=== PATIENT | male | born 1970 | race Caucasian/White ===

== ENCOUNTER 2019-03-13 21:49 | Emergency (ER) | payer SELFPAY ==
[~2019-03-13] VITALS: Ht 170.2 cm; Wt 101.8 kg
[2019-03-13] MEDS ORDERED: FLUO10CA13 PO (21:58)
--- NOTE | 2019-03-13 22:25 | NUR ---
Pt ambulated to room, a&ox3. Pt reports SI without a plan or previous attempt. [place], [place] psych facility. Pt reports bipolar and depression dx, prescribed Prozac 60mg last taken 2-3 days ago. Pt currently staying at [facility], recently relocated to [place]. Pt uses meth 3-4 times a week, etoh daily (6 drinks), and smokes 6 cigs a day. Addendum: 03/13/19 at 2231 by IMAN a&ox4*
[2019-03-13] MEDS ORDERED: LORazepam 1MG TABLET PO ONE (22:30)
[2019-03-13 22:39] LABS: BASOPHILS # (AUTO) 0.01 x10^3/uL (0-0.1); BASOPHILS % (AUTO) 0 % (0-1); EOSINOPHILS # (AUTO) 0.07 x10^3/uL (0-0.4); EOSINOPHILS % (AUTO) 1 % (1-7); LYMPHOCYTES # (AUTO) 1.57 x10^3/uL (1-3.4); LYMPHOCYTES % (AUTO) 23 % (22-44); MD NO; MEAN CORPUSCULAR HEMOGLOBIN 30.1 pg (27.5-34.5); MEAN CORPUSCULAR HGB CONC 33.6 g/dL (33.2-36.2); MEAN CORPUSCULAR VOLUME 89.6 fL (81-97); MEAN PLATELET VOLUME 7.6 fL (7.4-10.4); MONOCYTES # (AUTO) 0.72 x10^3/uL (0.2-0.8); MONOCYTES % (AUTO) 10 % (2-9); NEUTROPHILS # (AUTO) 4.58 x10^3/uL (1.8-6.8); NEUTROPHILS % (AUTO) 66 % (42-75); PLATELET COUNT 240 x10^3/uL (130-400)
[2019-03-13 22:49] LABS: ALBUMIN 3.3 g/dL (3.4-5.0); ANION GAP 6 mmol/L (5-15); CALCIUM 8.6 mg/dL (8.5-10.1); CHLORIDE 107 mmol/L (98-107); CREATININE 1.11 mg/dL (0.7-1.3)
[2019-03-13 22:50] LABS: SALICYLATE LEVEL < 1.7 mg/dL (2.8-20.0)
--- NOTE | 2019-03-13 23:11 | NUR ---
URINE SAMPLE TAKEN TO LAB
[2019-03-13] MEDS ORDERED: LORazepam 1MG TABLET ONE (23:13)
--- NOTE | 2019-03-13 23:16 | NUR ---
PT RESTING ON GURNEY, MEDICATED PER APR, DENIES FURTHER NEEDS, SITTER AT DOORWAY FOR CONTINOUS MONITORING
[2019-03-13 23:32] LABS: AMPHETAMINE SCREEN, URINE Positive (Negative); BARBITURATE SCREEN, URINE Negative (Negative); BENZODIAZEPINE SCREEN, URINE Negative (Negative); CANNABINOID SCREEN, URINE Positive (Negative); COCAINE SCREEN, URINE Negative (Negative); METHADONE SCREEN, URINE Negative (Negative); OPIATE SCREEN, URINE Negative (Negative)
--- NOTE | 2019-03-14 00:24 | NUR ---
PROVIDED PT WITH SANDWICH, CHIPS AND DRINK, SI PRECAUTIONS MAINTAINED, DENIES FURTHER NEEDS AT THSI TIME. SITTER AT DOORWAY FOR CONTINOUS MONITORING
--- NOTE | 2019-03-14 01:25 | NUR ---
PT RESTING WITH EYES CLOSED, EQUAL CHEST RISE/FALL OBSERVED, SITTER AT DOORWAY FOR CONTINOUS MONITORING
--- NOTE | 2019-03-14 01:31 | NUR ---
soc on telephone, updated on pt status, vs, h/x and medications. soc to consult with pt
--- NOTE | 2019-03-14 02:09 | NUR ---
Spoke with SOC medical provider who evaluated patient over Telepsych. Received update from provider that the patient was cleared to be discharged under the recommendation that he be discharged to an outpatient drug rehabilitation facility. Relayed this recommendation to the current ED provider. Awaiting for fax of recommendation for disposition.
--- NOTE | 2019-03-14 02:22 | NUR ---
Pt sleeping in [facility]. Awaiting recommendations for discharge.
[2019-03-14 02:55] VITALS: BP 116/81
--- NOTE | 2019-03-14 03:37 | NUR ---
PROVIDED PT WITH ALL PERSONAL BELONGINGS X 3 BAGS
--- NOTE | 2019-03-14 03:48 | NUR ---
PROVIDED PT WITH D/C PAPERS AND PT REFUSES TO GET DRESSED AND BE D/C'D, PT YELLED "IT'S 330 IN THE MORNING AND I SHOULDN'T HAVE BEEN ADMITTED", RN INFORMED PT THAT HE IS NOT ADMITTED AND IT'S TIME D/C, PT YELLED " I'M NOT LEAVING' AND PT SLAMMED THE DOOR. SECURITY CALLED FOR ASSISTANCE WITH PT D/C. SECURITY CURRENTLY AT PT'S BEDSIDE TO ESCORT PT OUT OF HOSPITAL
== END 2019-03-14 03:54 | disposition home or self-care (01) ==
LOC: ED 23:41
DX: F15.159 Other stimulant abuse with stimulant-induced psychotic disorder, unspecified (principal); F22 Delusional disorders; Z72.9 Problem related to lifestyle, unspecified; F17.200 Nicotine dependence, unspecified, uncomplicated
CPT/HCPCS: 36415; 80048; 80307; 82040; 85025; 99283

== ENCOUNTER 2019-03-24 15:39 | Emergency (ER) | payer OTHER ==
[~2019-03-24] VITALS: Ht 170.2 cm; Wt 101.0 kg
[~2019-03-24 15:39] MED LIST: FLUO10CA13 PO
--- NOTE | 2019-03-24 16:03 | NUR ---
Pt here for suicidal ideation, pt reports that he will go jump off a bridge if we let him go. Pt reports he needs to be in a state psychiatric facility. Pt repors he does not know what is real or fake. Pt reports that he has attempted to take his life before. Pt placed in safe room.
--- NOTE | 2019-03-24 16:06 | NUR ---
monet requestd from charge nurse
--- NOTE | 2019-03-24 16:15 | NUR ---
md to bedside
[2019-03-24 16:56] LABS: BASOPHILS # (AUTO) 0.02 x10^3/uL (0-0.1); BASOPHILS % (AUTO) 0 % (0-1); EOSINOPHILS # (AUTO) 0.07 x10^3/uL (0-0.4); EOSINOPHILS % (AUTO) 1 % (1-7); LYMPHOCYTES # (AUTO) 1.74 x10^3/uL (1-3.4); LYMPHOCYTES % (AUTO) 21 % (22-44); MD NO; MEAN CORPUSCULAR HGB CONC 33.7 g/dL (33.2-36.2); MEAN PLATELET VOLUME 7.8 fL (7.4-10.4); MONOCYTES % (AUTO) 10 % (2-9); NEUTROPHILS # (AUTO) 5.79 x10^3/uL (1.8-6.8); NEUTROPHILS % (AUTO) 69 % (42-75); PLATELET COUNT 276 x10^3/uL (130-400); RED BLOOD COUNT 5.27 x10^6/uL (4.38-5.82); RED CELL DISTRIBUTION WIDTH 13.1 % (9.4-14.8)
[2019-03-24 17:07] LABS: ALANINE AMINOTRANSFERASE 36 U/L (12-78); ALBUMIN 3.1 g/dL (3.4-5.0); ANION GAP 7 mmol/L (5-15); CALCIUM 8.7 mg/dL (8.5-10.1); CHLORIDE 105 mmol/L (98-107); CREATININE 0.89 mg/dL (0.7-1.3)
[2019-03-24 17:08] LABS: SALICYLATE LEVEL < 1.7 mg/dL (2.8-20.0)
[2019-03-24 17:09] LABS: ALKALINE PHOSPHATASE 83 U/L (45-117); BILIRUBIN,TOTAL 0.8 mg/dL (0.2-1.0); TOTAL PROTEIN 7.6 g/dL (6.4-8.2)
--- NOTE | 2019-03-24 17:10 | NUR ---
Patient is resting comfortably in bed. Vital Signs within normal limits. Sitter outside room for continous safety monitoring.
--- NOTE | 2019-03-24 17:10 | NUR ---
bags of belongings placed in ed locker.
--- NOTE | 2019-03-24 17:59 | NUR ---
pt given meal tray.
--- NOTE | 2019-03-24 18:00 | NUR ---
BREAK RN: DIET TRAY ORDERED
[2019-03-24] MEDS ORDERED: OLANZAPINE 5 MG TABLET ONE (18:46)
[2019-03-24] MEDS: OLANZAPINE 5 MG TABLET PO SCH ×2 (18:51→21:20)
--- NOTE | 2019-03-24 18:55 | NUR ---
report to Suzette MARCELO
--- NOTE | 2019-03-24 19:27 | NUR ---
pt resting on gurney drowsy but arouses to verbal response, room secured, stated " i still have suicidal thoughts", pt denies plan or si h/x when this rn asked, pt provided with urine cup for sample and pt stated "i don't need to go at thsi time. ill try in about an hour", sitter at doorway for continous monitoring
--- NOTE | 2019-03-24 19:46 | NUR ---
PROVIDED PT WITH SNACK AND WATER
--- NOTE | 2019-03-24 20:09 | NUR ---
pt resting calmly watching tv, denies needs at this time, sitter at doorway for continous monitoring. urine sample sent
[2019-03-24 20:35] LABS: AMPHETAMINE SCREEN, URINE Positive (Negative); BARBITURATE SCREEN, URINE Negative (Negative); BENZODIAZEPINE SCREEN, URINE Negative (Negative); CANNABINOID SCREEN, URINE Positive (Negative); COCAINE SCREEN, URINE Negative (Negative); METHADONE SCREEN, URINE Negative (Negative); OPIATE SCREEN, URINE Negative (Negative)
--- NOTE | 2019-03-24 21:02 | NUR ---
ghazala held pt was recently given by other rn at [id number]
--- NOTE | 2019-03-24 21:11 | NUR ---
Pts mental health placement packet refferal faxed to [facility], tila, wallace yuan, [facility], [id number], [facility]
--- NOTE | 2019-03-24 21:12 | NUR ---
pt resting on mark patel, provided pt with ice chips per his request, sitter at doorway for continous monitoring
--- NOTE | 2019-03-24 22:03 | NUR ---
pt resting calmly with eyes closed, nad, respirations even and unlabored, sitter at doorway for continous monitoring
--- NOTE | 2019-03-24 22:09 | NUR ---
hospital bed ordered by community administrator
--- NOTE | 2019-03-24 22:39 | NUR ---
provided pt with hospital bed
--- NOTE | 2019-03-24 23:09 | NUR ---
pt resting with eyes closed, nad, equal chest rise/fall observed, sitter at doorway for continous monitoring
--- NOTE | 2019-03-25 00:19 | NUR ---
pt resting with eyes closed, repositioned self in bed, equal chest rise/fall observed, sitter at doorway for continous monitoring
--- NOTE | 2019-03-25 01:08 | NUR ---
Patient is resting comfortably in bed, nadn, equal chest rise/fall observed, sitter outside room for continous safety monitoring.
--- NOTE | 2019-03-25 02:19 | NUR ---
pt resting with eyes closed, nad, equal chest rise/fall observed, sitter at doorway for continous monitoring
--- NOTE | 2019-03-25 03:17 | NUR ---
pt resting calmly, nad, respirations even and unlabored, sitter at doorway for continous monitoring
--- NOTE | 2019-03-25 04:00 | NUR ---
pt resting with eyes closed, nad, equal chest rise/fall observed, sitter at doorway for continous monitoring
--- NOTE | 2019-03-25 05:11 | NUR ---
pt resting with eyes closed, nad, equal chest rise/fall observed, sitter at doorway for continous monitoring
--- NOTE | 2019-03-25 06:27 | NUR ---
pt resting with eyes closed, nadn, equal chest rise/fall observed, sitter at doorway for continous monitoring
--- NOTE | 2019-03-25 06:59 | NUR ---
RECEIVED REPORT FROM ISABEL MARCELO AND ASSUMED CARE. PT SLEEPING IN DIRECT VIEW OF SITTER.
--- NOTE | 2019-03-25 07:08 | NUR ---
REPORT GIVEN TO FOZIA BAUMAN
[2019-03-25] MEDS ORDERED: OLANZAPINE 5 MG TABLET ONE (08:34)
[2019-03-25] MEDS: OLANZAPINE 5 MG TABLET PO SCH ×2 (09:03→21:00)
--- NOTE | 2019-03-25 09:05 | NUR ---
MEDICATED NOTED ON MAR AND PROVIDED BREAKFAST.
--- NOTE | 2019-03-25 10:07 | NUR ---
AFTER EATING BREAKFAST BACK TO SLEEP
--- NOTE | 2019-03-25 12:00 | NUR ---
social service liaison at bedside speaking with pt
--- NOTE | 2019-03-25 13:24 | NUR ---
BREAK RN: PT CALMLY RESTING ON HOSPITAL BED DOZING OFF, NAD WITH EQUAL CHEST RISE/FALL, NO NEEDS AT THIS TIME, PT REMAINS IN SAFE ENVIRONMENT, SITTER IN VIEW.
--- NOTE | 2019-03-25 15:06 | NUR ---
PT SLEEPING. REMAINS IN SITE OF SITTER.
--- NOTE | 2019-03-25 15:40 | NUR ---
REPORT RECEIVED FROM MITUL MARCELO.
--- NOTE | 2019-03-25 16:29 | NUR ---
PT SLEEPING IN HOSPITAL BED. RESPS EVEN AND UNLABORED. SITTER MONITORING FROM HALLWAY FOR SAFETY. ROOM REMAINS SECURE.
--- NOTE | 2019-03-25 17:08 | NUR ---
MEAL TRAY ORDERED AT THIS TIME.
--- NOTE | 2019-03-25 17:47 | NUR ---
MEAL TRAY PROVIDED AT THIS TIME.
--- NOTE | 2019-03-25 18:25 | NUR ---
PT AMB TO BR WITH STEADY GAIT. PT'S AOX4. RESPS EVEN AND UNLABORED.
--- NOTE | 2019-03-25 18:50 | NUR ---
REPORT GIVEN TO MELO MARCELO.
--- NOTE | 2019-03-25 19:47 | NUR ---
Jerald martin in [facility] - 03/25/19 at 1948 by IMAN Pt in bed, watching tv, in no distress.
--- NOTE | 2019-03-25 19:48 | NUR ---
Pt laying on right side, sleeping at this time.
--- NOTE | 2019-03-25 22:28 | NUR ---
Pt resting quietly, has no requests at this time
[2019-03-26] MEDS ORDERED: ACETAMINOPHEN 325 MG TABLET ONE (01:23)
[2019-03-26] MEDS ORDERED: OLANZAPINE 10 MG TABLET ONE (01:26)
--- NOTE | 2019-03-26 02:27 | NUR ---
Pt resting comfortably, sitter in hallway to observe
--- NOTE | 2019-03-26 05:23 | NUR ---
PT RESTING IN BED, PT ROOM IS SI SECURE WITH SITTER AT PT BED SIDE?
--- NOTE | 2019-03-26 06:36 | NUR ---
PT RESTING IN BED, PT ROOM IS SI SECURE WITH SITTER AT PT BED SIDE?
--- NOTE | 2019-03-26 07:00 | NUR ---
REPORT RECIEVED FROM NOC RN, PT RESTING COMFORTABLY ON HOSPITAL BED. MEAL TRAY ORDERED, NAD NOTED
[2019-03-26] MEDS ORDERED: OLANZAPINE 5 MG TABLET ONE ×2 (08:07→20:17)
[2019-03-26] MEDS: OLANZAPINE 5 MG TABLET PO SCH ×2 (08:28→20:18)
--- NOTE | 2019-03-26 08:31 | NUR ---
PT MEDICATED PER MAR, GIVEN MEAL TRAY, PT ATE 100% OF MEAL. VSS, NAD NOTED
--- NOTE | 2019-03-26 09:47 | NUR ---
Nestor from [facility] states they never received Doctors notes on patient in packet so faxed these and conformation received.
--- NOTE | 2019-03-26 10:30 | NUR ---
PT RESTING ON HOSPITAL BED, VISIBLE CHEST RISE AND FALL NOTED, NAD, SI PRECAUTIONS REMAIN IN PLACE
--- NOTE | 2019-03-26 12:30 | NUR ---
PT GIVEN MEAL TRAY. NO NEEDS AT THIS TIME, NAD NOTED
--- NOTE | 2019-03-26 15:00 | NUR ---
PT RESTING ON GURNEY, VISIBLE CHEST RISE AND FALL NOTED.
--- NOTE | 2019-03-26 18:18 | NUR ---
PT GIVEN MEAL TRAY. ATE 100% OF MEAL. PT DENIES ANY NEEDS AT THIS TIME
--- NOTE | 2019-03-26 21:27 | NUR ---
PT RESTING WITH EYES CLOSED. SITTER IN DOORWAY.
--- NOTE | 2019-03-26 22:30 | NUR ---
PT RESTING WITH EYES CLOSED. SITTER IN DOORWAY.
--- NOTE | 2019-03-27 00:30 | NUR ---
PT RESTING WITH EYES CLOSED. SITTER IN DOORWAY.
--- NOTE | 2019-03-27 01:30 | NUR ---
PT RESTING WITH EYES CLOSED. SITTER IN DOORWAY.
--- NOTE | 2019-03-27 02:30 | NUR ---
PT RESTING WITH EYES CLOSED. SITTER IN DOORWAY.
--- NOTE | 2019-03-27 03:30 | NUR ---
PT RESTING WITH EYES CLOSED. SITTER IN DOORWAY.
--- NOTE | 2019-03-27 04:30 | NUR ---
PT RESTING WITH EYES CLOSED. SITTER IN DOORWAY.
--- NOTE | 2019-03-27 07:09 | NUR ---
REPORT RECEIVED FROM FOZIA FUENTES. PT RESTING ON HOSPITAL BED. NADN. ROOM SECURE. SITER AT BEDSIDE.
--- NOTE | 2019-03-27 07:13 | NUR ---
BREAKFAST TRAY ORDERED.
--- NOTE | 2019-03-27 08:03 | NUR ---
PT PROVIDED WITH BREAKFAST TRAY. ADMITS TO SI, DENIES HI THIS MORNING. ROOM SECURE. SITTER AT BEDSIDE. DENIES FURTHER NEEDS.
[2019-03-27 08:07] VITALS: BP 116/76
--- NOTE | 2019-03-27 09:05 | NUR ---
PT RESTING ON HOSPITAL BED. NADN. SITTER AT BEDSIDE. ROOM SECURE. RESPIRATIONS EVEN AND UNLABORED.
--- NOTE | 2019-03-27 09:50 | NUR ---
REPORT GIVEN TO FOZIA BAEZ AND FOZIA ROCKWELL.
--- NOTE | 2019-03-27 09:54 | NUR ---
REPORT RECEIVED FROM FOZIA ENCISO. [facility]
--- NOTE | 2019-03-27 10:23 | NUR ---
TP RN: Ray MARCELO at [facility] has accepted this pt on behalf of MD Moore, pt may be transferred @ [id number]
== END 2019-03-27 13:51 ==
LOC: ED 16:55
DX: F29 Unspecified psychosis not due to a substance or known physiological condition (principal); F32.9 Major depressive disorder, single episode, unspecified
CPT/HCPCS: 36415; 80053; 80307; 85025; 99285